=== PATIENT | female | born 1965 | race Caucasian/White ===

== ENCOUNTER 2019-08-12 19:29 | Emergency (ER) | payer OTHER ==
[~2019-08-12] VITALS: Ht 167.6 cm; Wt 65.8 kg
[2019-08-12 19:38] VITALS: BP 180/104; Ht 167.6 cm; Wt 65.8 kg
== END 2019-08-12 19:54 | disposition home or self-care (01) ==
LOC: ED 19:29
DX: M25.512 Pain in left shoulder (principal); S46.812A Strain of other muscles, fascia and tendons at shoulder and upper arm level, left arm, initial encounter; X58.XXXA Exposure to other specified factors, initial encounter; Y93.89 Activity, other specified; Y92.89 Other specified places as the place of occurrence of the external cause; Y99.8 Other external cause status
CPT/HCPCS: J1885

== ENCOUNTER 2019-10-09 08:42 | Emergency (ER) | payer OTHER ==
[~2019-10-09] VITALS: Ht 167.6 cm; Wt 65.8 kg
[2019-10-09 08:45] VITALS: BP 164/91; Ht 167.6 cm; Wt 65.8 kg
[2019-10-09 09:59] LABS: BASOPHIL % 0.5 % (0-2); PLATELET COUNT 287 x10^3mcL (130-400); RED CELL DISTRIBUTION WIDTH 13.1 % (11.5-14.5)
[2019-10-09 10:03] LABS: T3 TOTAL 1.06 ng/mL
[2019-10-09 10:19] LABS: FREE T4 1.15 ng/dL (0.76-1.46); FREE THYROXINE INDEX 2.3 ug/dL (1.4-4.5); T4(THYROXINE) 6.9 ug/dL (4.7-13.3)
[2019-10-09 10:49] LABS: CARBON DIOXIDE 21.5 mmol/L (21-32); CHLORIDE SERUM 102 mmol/L (98-107); CREATININE SERUM 0.9 mg/dL (0.6-1.0); GFR1 > 60 mL/min; GLUCOSE SERUM 92 mg/dL (74-106); POTASSIUM SERUM 3.8 mmol/L (3.5-5.1); SODIUM SERUM 139 mmol/L (136-145)
[2019-10-09 10:56] LABS: ALBUMIN 4.5 g/dL (3.4-5.0); ALKALINE PHOSPHATASE 68 U/L (46-116); ALT/SGPT 32 U/L (14-59); AST/SGOT 17 U/L (15-37); BILIRUBIN TOTAL 0.6 mg/dL (0.20-1.00); TOTAL PROTEIN, SERUM 7.9 g/dL (6.4-8.2)
== END 2019-10-09 10:45 | disposition home or self-care (01) ==
LOC: ED 08:42
PROVIDERS: Specialist
DX: K11.20 Sialoadenitis, unspecified (principal); I10 Essential (primary) hypertension
CPT/HCPCS: 84439; Q0092

== ENCOUNTER 2019-12-13 10:03 | Emergency (ER) | payer OTHER, SELFPAY ==
[~2019-12-13] VITALS: Ht 167.6 cm; Wt 65.8 kg
[2019-12-13 10:05] VITALS: BP 166/109; Ht 167.6 cm; Wt 65.8 kg
== END 2019-12-13 10:52 | disposition home or self-care (01) ==
LOC: ED 10:03
DX: U07.1 COVID-19 (principal); I10 Essential (primary) hypertension; Z98.890 Other specified postprocedural states
CPT/HCPCS: U0003-CS

== ENCOUNTER 2019-12-18 09:33 | Inpatient (IN) | payer OTHER, SELFPAY ==
[~2019-12-18] VITALS: Ht 167.6 cm; Wt 65.8 kg
[2019-12-18 10:42] LABS: BASOPHIL % 0.2 % (0-2); PLATELET COUNT 139 x10^3mcL (130-400); RED CELL DISTRIBUTION WIDTH 12.2 % (11.5-14.5)
[2019-12-18 10:56] LABS: CALCIUM 8.6 mg/dL (8.5-10.1); CARBON DIOXIDE 24.1 mmol/L (21-32); CHLORIDE SERUM 99 mmol/L (98-107); CREATININE SERUM 0.9 mg/dL (0.6-1.0); GFR1 > 60 mL/min; GLUCOSE SERUM 130 mg/dL (74-106); POTASSIUM SERUM 3.1 mmol/L (3.5-5.1); SODIUM SERUM 136 mmol/L (136-145)
[2019-12-18 11:01] LABS: ALBUMIN 3.9 g/dL (3.4-5.0); ALKALINE PHOSPHATASE 89 U/L (46-116); ALT/SGPT 43 U/L (14-59); AST/SGOT 23 U/L (15-37); BILIRUBIN TOTAL 0.39 mg/dL (0.20-1.00); CHOLESTEROL 190 mg/dL (<200); HDL CHOLESTEROL 33 mg/dL (40-60); TOTAL PROTEIN, SERUM 7.5 g/dL (6.4-8.2)
[2019-12-18] MEDS ORDERED: TENORMIN50 MG PO (13:13)
[2019-12-18 13:48] LABS: MAGNESIUM 1.8 mg/dL (1.8-2.4)
[2019-12-18 13:56] LABS: FREE T4 1.45 ng/dL (0.76-1.46); FREE THYROXINE INDEX 3.2 ug/dL (1.4-4.5); T4(THYROXINE) 9.7 ug/dL (4.7-13.3)
[2019-12-18 14:04] LABS: C REACTIVE PROTEIN 1.8 mg/dL (<=0.9)
[2019-12-18 16:13] VITALS: Ht 167.6 cm; Wt 65.8 kg
[2019-12-18 16:57] VITALS: BP 140/76
[2019-12-18 17:55] VITALS: BP 115/66
[2019-12-18 20:13] VITALS: BP 121/65
[2019-12-19 01:30] VITALS: BP 151/76
[2019-12-19 05:13] VITALS: BP 129/77
[2019-12-19 07:58] LABS: RED CELL DISTRIBUTION WIDTH 12.2 % (11.5-14.5)
[2019-12-19 08:10] LABS: C REACTIVE PROTEIN 1.6 mg/dL (<=0.9); CALCIUM 8.3 mg/dL (8.5-10.1); CARBON DIOXIDE 23.2 mmol/L (21-32); CHLORIDE SERUM 105 mmol/L (98-107); CREATININE SERUM 0.8 mg/dL (0.6-1.0); GFR1 > 60 mL/min; GLUCOSE SERUM 89 mg/dL (74-106); POTASSIUM SERUM 3.5 mmol/L (3.5-5.1); SODIUM SERUM 139 mmol/L (136-145)
[2019-12-19 08:29] VITALS: BP 137/82
[2019-12-19 08:29] LABS: PLATELET COUNT 122 x10^3mcL (130-400)
[2019-12-19 11:03] LABS: MONOCYTE 7 % (0-7); SEGMENTED NEUTROPHILS 54 % (37-75); rbc morphology (normal/abnorm) NORMAL (NORMAL)
[2019-12-19 12:03] VITALS: BP 117/69
[2019-12-19 14:39] LABS: T3 TOTAL 0.98 ng/mL
[2019-12-19 16:46] VITALS: BP 146/77
[2019-12-19 21:15] VITALS: BP 132/74
[2019-12-20 05:55] VITALS: BP 144/76
[2019-12-20 07:42] LABS: C REACTIVE PROTEIN 1.8 mg/dL (<=0.9); CALCIUM 8.4 mg/dL (8.5-10.1); CARBON DIOXIDE 23.7 mmol/L (21-32); CHLORIDE SERUM 103 mmol/L (98-107); CREATININE SERUM 0.8 mg/dL (0.6-1.0); GFR1 > 60 mL/min; GLUCOSE SERUM 100 mg/dL (74-106); POTASSIUM SERUM 3.1 mmol/L (3.5-5.1); SODIUM SERUM 138 mmol/L (136-145)
[2019-12-20 08:55] VITALS: BP 132/80
[2019-12-20 09:13] LABS: BASOPHIL % 0.1 % (0-2); PLATELET COUNT 145 x10^3mcL (130-400); RED CELL DISTRIBUTION WIDTH 12.2 % (11.5-14.5)
[2019-12-20 13:31] VITALS: BP 147/75
[2019-12-20 16:35] VITALS: BP 136/67
[2019-12-20 20:18] VITALS: BP 117/63
[2019-12-21 05:56] VITALS: BP 149/79
[2019-12-21 07:36] LABS: CALCIUM 8.6 mg/dL (8.5-10.1); CARBON DIOXIDE 22.5 mmol/L (21-32); CHLORIDE SERUM 103 mmol/L (98-107); CREATININE SERUM 0.8 mg/dL (0.6-1.0); GFR1 > 60 mL/min; GLUCOSE SERUM 99 mg/dL (74-106); POTASSIUM SERUM 3.7 mmol/L (3.5-5.1); SODIUM SERUM 138 mmol/L (136-145)
[2019-12-21 08:00] VITALS: BP 137/83
[2019-12-21 16:30] VITALS: BP 120/72
[2019-12-21 21:04] VITALS: BP 126/68
[2019-12-22 06:17] VITALS: BP 125/75
[2019-12-22 07:10] LABS: CALCIUM 8.9 mg/dL (8.5-10.1); CARBON DIOXIDE 28.6 mmol/L (21-32); CHLORIDE SERUM 102 mmol/L (98-107); CREATININE SERUM 0.8 mg/dL (0.6-1.0); GFR1 > 60 mL/min; GLUCOSE SERUM 101 mg/dL (74-106); MAGNESIUM 1.9 mg/dL (1.8-2.4); PHOSPHOROUS 3.7 mg/dL (2.5-4.9); SODIUM SERUM 138 mmol/L (136-145)
[2019-12-22 09:47] VITALS: BP 133/79
[2019-12-22 12:15] VITALS: BP 138/80
[2019-12-22] MEDS ORDERED: REGLAN5 M1 PO (13:42)
[2019-12-22] MEDS ORDERED: PROMETHAZINE PO (13:44)
[2019-12-22] MEDS ORDERED: PROAIR HFA8.5 GM INH (13:45)
[2019-12-22] MEDS ORDERED: MUCINEX600 MG PO (13:45)
[2019-12-22] MEDS ORDERED: DECADRON6 MG PO (13:47)
[2019-12-22] MEDS ORDERED: OMEPRAZOLE MAGN20 M1 PO (13:48)
[2019-12-22] MEDS ORDERED: VALIUM5 MG PO (15:02)
[2019-12-22 15:27] VITALS: BP 138/80
== END 2019-12-22 16:45 | disposition home or self-care (01) | DRG 179 ==
LOC: ED 09:33 → DU 12:25
PROVIDERS: Emergency Medicine; Internal Medicine; ADMIT Internal Medicine; ATTEND Internal Medicine
DX: U07.1 COVID-19 (principal); E87.6 Hypokalemia; E83.39 Other disorders of phosphorus metabolism; I10 Essential (primary) hypertension; E86.0 Dehydration; M41.9 Scoliosis, unspecified; G43.909 Migraine, unspecified, not intractable, without status migrainosus; K31.84 Gastroparesis
CPT/HCPCS: 83880; 84439; 85378; 87046; 87046-59; 94150; C9113; G0378; J1200; J1650; J1885; J2405; J2550; J2765; J3030; J7030; J8540; J8597

== ENCOUNTER 2020-01-10 12:21 | Emergency (ER) | payer OTHER ==
[~2020-01-10] VITALS: Ht 167.6 cm; Wt 63.5 kg
[~2020-01-10 12:21] MED LIST: DECADRON6 MG PO; MUCINEX600 MG PO; OMEPRAZOLE MAGN20 M1 PO; PROAIR HFA8.5 GM INH; PROMETHAZINE PO; REGLAN5 M1 PO; TENORMIN50 MG PO; VALIUM5 MG PO
[2020-01-10 12:22] VITALS: Ht 167.6 cm; Wt 63.5 kg
[2020-01-10 13:04] VITALS: BP 182/117
== END 2020-01-10 13:04 | disposition home or self-care (01) ==
LOC: ED 12:21
DX: U07.1 COVID-19 (principal); I10 Essential (primary) hypertension; Z76.0 Encounter for issue of repeat prescription

== ENCOUNTER → 2020-02-07 | Outpatient (CLI) | payer OTHER ==
[2020-02-07 13:02] LABS: BASOPHIL % 0.6 % (0-2); PLATELET COUNT 267 x10^3mcL (130-400)
[2020-02-07 13:17] LABS: ALBUMIN 4.2 g/dL (3.4-5.0); ALKALINE PHOSPHATASE 83 U/L (46-116); ALT/SGPT 50 U/L (14-59); AST/SGOT 20 U/L (15-37); BILIRUBIN DIRECT 0.12 mg/dL (0.0-0.2); BILIRUBIN TOTAL 0.54 mg/dL (0.20-1.00); CALCIUM 9.4 mg/dL (8.5-10.1); CARBON DIOXIDE 28.1 mmol/L (21-32); CHLORIDE SERUM 101 mmol/L (98-107); CREATININE SERUM 0.8 mg/dL (0.6-1.0); GFR1 > 60 mL/min; GLUCOSE SERUM 103 mg/dL (74-106); HDL CHOLESTEROL 41 mg/dL (40-60); POTASSIUM SERUM 3.4 mmol/L (3.5-5.1); SODIUM SERUM 136 mmol/L (136-145); TOTAL PROTEIN, SERUM 7.9 g/dL (6.4-8.2); TRIGLYCERIDES 149 mg/dL (<150)
[2020-02-07 13:21] LABS: CHOLESTEROL 240 mg/dL (<200); CHOLESTEROL/HDL RATIO 5.9
[2020-02-07 13:27] LABS: FREE T4 1.07 ng/dL (0.76-1.46)
== END | disposition home or self-care (01) ==
LOC: LB 12:17
PROVIDERS: ATTEND Internal Medicine
DX: Z00.00 Encounter for general adult medical examination without abnormal findings (principal)
CPT/HCPCS: 84439

== ENCOUNTER → 2020-05-02 | Outpatient (CLI) | payer OTHER | END | disposition home or self-care (01) | LOC: MI 09:47 | PROVIDERS: ATTEND Psychiatry & Neurology Neurology | PROC: B030ZZZ Magnetic Resonance Imaging (MRI) of Brain (ICD-10-PCS; principal; 2020-05-02) | DX: G44.219 Episodic tension-type headache, not intractable (principal) ==